=== PATIENT | female | born 1965 | race Caucasian/White ===

== ENCOUNTER 2020-10-20 07:01 | Day surgery (SDC) | payer BC ==
[~2020-10-20 07:01] MED LIST: Lactated Ringers 1,000 ML IV SCH; Sodium Chloride 0.9% 10 ML Syringe FLUSH PRN
[2020-10-20] MEDS ORDERED: Lidocaine 2% 5 ML SDV INJECT ONE (07:02)
[2020-10-20] MEDS ORDERED: Glycopyrrolate 0.2 MG/ML SDV ONE (07:59)
[2020-10-20] MEDS ORDERED: Propofol 200 MG/20 ML SDV ONE (07:59)
[2020-10-20] MEDS ORDERED: Lidocaine 2% 5 ML SDV ONE (07:59)
[2020-10-20] MEDS ORDERED: Midazolam 1 MG/ML 2 ML SDV ONE (07:59)
--- NOTE | 2020-10-20 08:26 | PCM.PRNOTE ---
- Free Text/Narrative Note: PROCEDURE PERFORMED: Esophagogastroduodenoscopy with biopsy PRE-PROCEDURE DIAGNOSIS/INDICATION FOR PROCEDURE: Persistent reflux symptoms CONSENT: Informed consent was obtained prior to the procedure after discussion of the risks (including pain, bleeding, infection, perforation, need for further procedures, adverse reaction to anesthesia, cardiovascular event), benefits and alternatives and expected outcomes. Verbal consent given and consent form signed. PROCEDURAL PAUSE: Completed SEDATION: Per anesthesia DESCRIPTION OF PROCEDURE: Patient was brought back to the operating room and placed in a left lateral decubitus position. Bite block placed. After adequate sedation and anesthetic was administered, endoscope was inserted into the patient's mouth and was passed easily through the esophagus and stomach into the duodenum without difficulty. Examined duodenum normal appearing. Pylorus normal appearing. Stomach, including viewing in retroflexion, normal appearing aside from mild gastritis for which biopsies taken with cold forceps and one <0.5mm polyp along the greater curvature removed with cold forceps. Gastroesophageal junction at 38cm from the incisors. No hiatal hernia present. Esophagus mildly torturous, but with normal mucosa. The scope was removed without difficulty. Patient tolerated the procedure well. No complications. IMPRESSION: Esophagogastroduodenoscopy performed revealing: - Mild gastritis, pathology now pending - One small gastric polyp, pathology now pending - Mildly torturous esophagus PLAN: Will contact the patient when pathology results received. Discussed appropriate administration of antacid medication.
== END 2020-10-20 10:15 | disposition home or self-care (01) ==
LOC: KA.SDS 07:01
PROVIDERS: ATTEND Family Medicine
DX: K31.7 Polyp of stomach and duodenum (principal); K29.50 Unspecified chronic gastritis without bleeding; K21.9 Gastro-esophageal reflux disease without esophagitis; E66.9 Obesity, unspecified; Z79.899 Other long term (current) drug therapy; Z98.890 Other specified postprocedural states; Z68.36 Body mass index [BMI] 36.0-36.9, adult
CPT/HCPCS: 00731; 81025; J2250; J2704; J3490; J7120